=== PATIENT | male | born 1990 | race Caucasian/White ===

== ENCOUNTER 2016-11-13 11:25 | Emergency (ER) | payer OTHER ==
[2016-11-13 11:32] VITALS: BP 148/77
[2016-11-13] MEDS ORDERED: LIDOCAINE 1% INJ-PF (10 MG/ML) 30 ML SDV INJ ONE (11:36)
[2016-11-13] MEDS ORDERED: DIPH/PERTUSS(ACELL)/TETANUS VAC/PF 0.5 ML SYR (>=10YO) IM ONE (11:36)
--- NOTE | 2016-11-13 12:16 | ER Document Report ---
ED Wound - General Chief Complaint: Laceration Stated Complaint: CHIN LACERATION Time Seen by Provider: 11/13/16 11:35 Notes: patient is a 26 year old male who presents with a laceration on his chin form a tree branch <1 hour ago. bleeding controlled. denies h/i, h/a, LOC, n/v, AMS TRAVEL OUTSIDE OF THE [place] IN LAST 30 DAYS: No - Related Data Allergies/Adverse Reactions: prednisone Allergy (Verified 11/13/16 11:32) tachycardia, feels like will pass out Past Medical History - Social History Smoking Status: Never Smoker Chew tobacco use (# tins/day): No Frequency of alcohol use: None Drug Abuse: None Family History: Reviewed & Not Pertinent Patient has suicidal ideation: No Patient has homicidal ideation: No Renal/ Medical History: Denies: Hx Peritoneal Dialysis Surgical Hx: Negative Review of Systems - Review of Systems EENT: No symptoms reported Skin: See HPI Physical Exam - Vital signs Vitals: Temp Pulse Resp BP Pulse Ox 97.5 F 66 18 148/77 H 99 11/13/16 11:30 11/13/16 11:30 11/13/16 11:30 11/13/16 11:30 11/13/16 11:30 - General General appearance: Appears well, Alert In distress: None - Respiratory Respiratory status: No respiratory distress Chest status: Nontender Breath sounds: Normal Chest palpation: Normal - Cardiovascular Rhythm: Regular Heart sounds: Normal auscultation Murmur: No Pulses: Normal: Radial Normal capillary refill: Yes - Neurological Neuro grossly intact: Yes Cognition: Normal Orientation: AAOx4 [place] Coma Scale Eye Opening: Spontaneous [place] Coma Scale Verbal: Oriented [place] Coma Scale Motor: Obeys Commands [place] Coma Scale Total: 15 - Skin Skin Temperature: Warm - 2cm Skin Moisture: Dry Skin Color: Normal Skin Turgor: Elastic Skin irregularity: Laceration - past dermis, minimal subq fat involvment Location of irregularity: Face Irregularity with: Other - no longer bleeding Course - Re-evaluation Re-evalutation: 11/13/16 15:36 wound irrigated saline and Betadine the bedside. closed with 2 6.0 nylon suture. patient toelrated the procedure well without complications. to see [facility] in 3-5 days for suture removal - Vital Signs Vital signs: Temp Pulse Resp BP Pulse Ox 97.5 F 66 18 148/77 H 99 11/13/16 11:30 11/13/16 11:30 11/13/16 11:30 11/13/16 11:30 11/13/16 11:30 Procedures - Laceration/Wound Repair Face Wound length (cm): 2 Wound's Depth, Shape: Linear. No: Into muscle, Irregular, Flap Laceration pre-procedure: Sterile PPE donned, Sterile drapes applied Anesthetic type: 1% Lidocaine Volume Anesthetic (mLs): 2 Wound explored: Clean, No foreign body removed Wound Debrided: Minimal Wound Repaired With: Sutures Suture Size/Type: 6:0, Nylon Number of Sutures: 2 Layer Closure?: No Post-procedure NV exam normal: Yes Complications: No Discharge - Discharge Clinical Impression: Laceration Condition: Good Disposition: HOME, SELF-CARE Instructions: Antibiotic Ointment Protection ([facility]), Laceration Care ([facility]), Tetanus Immunization Given ([facility]), Soap Cleansing ([facility]) Additional Instructions: Please see a provider in 3-5 days to have your stitches removed Forms: Special Work Note, Return to Work Referrals: TONG OLIVAS MD [ACTIVE STAFF] - Follow up as needed
== END 2016-11-13 12:22 | disposition home or self-care (01) ==
LOC: ER 11:25
PROC: 0HQ1XZZ Repair Face Skin, External Approach (ICD-10-PCS; principal; 2016-11-13)
DX: S01.81XA Laceration without foreign body of other part of head, initial encounter (principal); W45.8XXA Other foreign body or object entering through skin, initial encounter
CPT/HCPCS: 90471; 90715; 99282

== ENCOUNTER 2016-11-19 07:18 | Emergency (ER) | payer OTHER ==
[2016-11-19 07:25] VITALS: BP 144/84
--- NOTE | 2016-11-19 08:12 | ER Document Report ---
HPI - HPI Patient complains to provider of: suture removal Onset: Other - Onset/Duration: Sudden Quality of pain: No pain Pain Level: 0 Context: Patient presents today with request for suture removal. Patient reports he had sutures placed on November 13 after tree limb hit him in the face. He denies fever vomiting diarrhea. Reports no pain to the site. Patient's sutures noted to, no erythema swelling noted no signs of infection. Associated Symptoms: None Exacerbated by: Denies Relieved by: Denies Similar symptoms previously: Yes Recently seen / treated by doctor: Yes - DERM Skin Color: Normal Past Medical History - General Information source: Patient - Social History Smoking Status: Unknown if Ever Smoked Cigarette use (# per day): No Frequency of alcohol use: None Drug Abuse: None Occupation: [employer] Family History: Reviewed & Not Pertinent Patient has suicidal ideation: No Patient has homicidal ideation: No - Medical History Medical History: Negative Renal/ Medical History: Denies: Hx Peritoneal Dialysis Surgical Hx: Negative Vertical Provider Document - CONSTITUTIONAL Agree With Documented VS: Yes Exam Limitations: No Limitations General Appearance: WD/WN, No Apparent Distress - INFECTION CONTROL TRAVEL OUTSIDE OF THE [place] IN LAST 30 DAYS: No - HEENT HEENT: Atraumatic, Normocephalic - NECK Neck: Supple - RESPIRATORY Respiratory: No Respiratory Distress O2 Sat by Pulse Oximetry: 100 - CARDIOVASCULAR Cardiovascular: Regular Rate - MUSCULOSKELETAL/EXTREMETIES Musculoskeletal/Extremeties: MAEW, FROM - NEURO Level of Consciousness: Awake, Alert, Appropriate Motor/Sensory: No Motor Deficit - DERM Integumentary: Warm, Dry Adult Front & Back Diagram: 1 - 2 sutures noted intact site benign. open his mouth wide Course - Re-evaluation Re-evalutation: 11/19/16 sutures removed , pt instructed on importance of monitoring the site for s/s infection, fu with pcp or return here for concerns - Vital Signs Vital signs: Temp Pulse Resp BP Pulse Ox 97.6 F 62 16 144/84 H 100 11/19/16 07:23 11/19/16 07:23 11/19/16 07:23 11/19/16 07:23 11/19/16 07:23 Discharge - Discharge Clinical Impression: Encounter for removal of sutures, Elevated blood pressure reading Condition: Stable Disposition: HOME, SELF-CARE Instructions: Suture Removal Additional Instructions: *You have been treated for a suture removal *Monitor the site for signs of infection such as pain, redness, swelling, warmth *Keep the area clean *Return to ED for signs of infection, worsening condition, concerns, changes, needs Forms: Elevated Blood Pressure Referrals: LAURENCE GUZMAN MD [Primary Care Provider] - Follow up in 1 week
== END 2016-11-19 08:18 | disposition home or self-care (01) ==
LOC: ER 07:18
DX: Z48.02 Encounter for removal of sutures (principal); R03.0 Elevated blood-pressure reading, without diagnosis of hypertension

== ENCOUNTER 2019-08-21 08:27 | Observation (INO) | payer OTHER ==
[2019-08-21 09:33] LABS: ABSOLUTE LYMPHOCYTES (AUTO) 1.6 10^3/uL (0.5-4.7); ABSOLUTE MONOCYTES (AUTO) 1.3 10^3/uL (0.1-1.4); ABSOLUTE NEUT (AUTO) 7.3 10^3/uL (1.7-8.2); BASOPHILS % (AUTO) 0.3 % (0-2); EOSINOPHILS % (AUTO) 0.3 % (0-6); HEMATOCRIT 46.1 % (37.9-51.0); HEMOGLOBIN 16.6 g/dL (13.5-17.0); LYMPHOCYTES % (AUTO) 15.4 % (13-45); MEAN CORPUSCULAR HEMOGLOBIN 30.4 pg (27.0-33.4); MEAN CORPUSCULAR VOLUME 85 fl (80-97); MONOCYTES % (AUTO) 12.3 % (3-13); PLATELET COUNT 218 10^3/uL (150-450); RED BLOOD COUNT 5.44 10^6/uL (4.35-5.55); RED CELL DISTRIBUTION WIDTH 13.7 % (11.5-14.0); SEGMENTED NEUTROPHILS % (AUTO) 71.7 % (42-78); TOTAL CELLS COUNTED % (AUTO) 100 %; WHITE BLOOD COUNT 10.2 10^3/uL (4.0-10.5)
[2019-08-21 09:54] LABS: APPEARANCE,URINE SLIGHTLY-CLOUDY; BILIRUBIN,URINE NEGATIVE (NEGATIVE); COLOR,URINE YELLOW; GLUCOSE, URINE NEGATIVE (NEGATIVE); KETONES,URINE 80 mg/dL (NEGATIVE); LEUKOCYTE ESTERASE,URINE NEGATIVE (NEGATIVE); NITRITE,URINE NEGATIVE (NEGATIVE); PROTEIN,URINE NEGATIVE (NEGATIVE); URINE SPECIFIC GRAVITY 1.025; UROBILINOGEN,URINE NEGATIVE mg/dL (<2.0)
[2019-08-21 09:57] LABS: ALBUMIN 4.3 g/dL (3.5-5.0); ALKALINE PHOSPHATASE 68 U/L (38-126); ANION GAP 13 (5-19); ASPARTATE AMINO TRANSFERASE 21 U/L (17-59); BILIRUBIN,TOTAL 1.1 mg/dL (0.2-1.3); BLOOD UREA NITROGEN 25 mg/dL (7-20); CALCIUM 9.4 mg/dL (8.4-10.2); CARBON DIOXIDE 24 mmol/L (22-30); CHLORIDE 98 mmol/L (98-107); GLUCOSE 92 mg/dL (75-110); POTASSIUM 3.9 mmol/L (3.6-5.0); TOTAL PROTEIN 7.4 g/dL (6.3-8.2)
[2019-08-21] MEDS ORDERED: NORMAL SALINE 1000 ML 1,000 ML IV ONE ×2 (10:19→10:50)
[2019-08-21] MEDS ORDERED: METRONIDAZOLE 500 MG/NS RTU 500 MG/100 ML RTUPB IV ONE (10:52)
[2019-08-21] MEDS ORDERED: ONDANSETRON HCL INJ/PF 4 MG/2 ML SDV IV ONE (10:53)
[2019-08-21] MEDS ORDERED: FENTANYL CITRATE INJ/PF 100 MCG/2 ML AMPUL IV ONE (10:54)
--- NOTE | 2019-08-21 10:59 | ER Document Report ---
ED General - General Chief Complaint: Nausea/Vomiting/Diarrhea Stated Complaint: VOMITING/DIAHERRA/FEVER/HEADACHE/BLOOD IN STOOL Time Seen by Provider: 08/21/19 09:52 Primary Care Provider: LAURENCE GUZMAN MD [Primary Care Provider] - Follow up as needed TRAVEL OUTSIDE OF THE [place] IN LAST 30 DAYS: No - HPI Notes: Chief complaint: Nausea/vomiting and diarrhea Previously healthy 29-year-old male reports 5-day history of what he perceived to be a viral illness. He says he started out with some nasal stuffiness. He subsequently developed nausea vomiting. He was on vacation in [facility] and felt that he was febrile intermittently but did not have a thermometer. He took Tylenol and the fever would break and he would feel better and then when the fever would rise again he would become nauseated and have recurrent episodes of vomiting. Thereafter he developed watery diarrhea and this is persisted for several days and today he is having cramping and passing some blood with his stools. Denies prior serious illnesses, hospitalizations or surgery. Patient's had a history of GERD which he is self medicates with [id number] Pepcid. Patient reports intolerance for prednisone which she took in the past for poison gabino. He said this made him extremely jittery and restless. No prior surgery. Non-smoker. Denies alcohol or drug abuse. - Related Data Allergies/Adverse Reactions: prednisone Allergy (Verified 08/21/19 08:49) tachycardia, feels like will pass out Past Medical History - General Information source: Patient, Relative - Social History Smoking Status: Never Smoker Frequency of alcohol use: None Drug Abuse: None Occupation: Works with a [employer] service Lives with: Family Family History: Reviewed & Not Pertinent Patient has suicidal ideation: No Patient has homicidal ideation: No Endocrine Medical History: Reports: Other - "Prediabetes" Renal/ Medical History: Denies: Hx Peritoneal Dialysis GI Medical History: Reports: Hx Gastroesophageal Reflux Disease Review of Systems - Review of Systems Notes: Constitutional: As per HPI. HENT: As per HPI t. Eyes: Negative for visual changes. Cardiovascular: Negative for chest pain. Respiratory: Negative for shortness of breath. Gastrointestinal: As per HPI. Genitourinary: Negative for dysuria. Musculoskeletal: Negative for back pain. Skin: Negative for rash. Neurological: Negative for headaches, weakness or numbness. 10 point ROS negative except as marked above and in HPI. Physical Exam - Vital signs Vitals: Temp Pulse Resp BP Pulse Ox 98.4 F 86 18 152/94 H 100 08/21/19 08:31 08/21/19 08:31 08/21/19 08:31 08/21/19 08:31 08/21/19 08:31 - Notes Notes: GENERAL: Male patient appearing approximately stated age who looks ill and acutely dehydrated. SKIN: Pale and clammy. No rashes. HEAD: Normocephalic atraumatic. EYES: Eyes appear mildly sunken. PERRLA. EOMI. Conjunctivae and sclerae clear. EARS: CANALS AND TMS CLEAR. NOSE: CLEAR. MOUTH: Tacky oral mucosa. Good dentition. No stridor or edema. No drooling. NECK: Supple. No masses or thyromegaly. No adenopathy. Carotids 2+ without bruits. No JVD. BACK: Symmetrical without tenderness. CHEST: Respirations unlabored. Breath sounds clear and symmetrical. HEART: Mildly tachycardic regular rhythm. No murmur gallop or rub. ABDOMEN: Mild diffuse tenderness. Soft without masses, organomegaly or rebound. Bowel sounds hyperactive. No bruits. GENITALIA: Deferred. EXTREMITIES: No edema. No calf tenderness. Cap refill less than 1.5 seconds. Dorsalis pedis and posterior tibial pulses 3+ and symmetrical. NEUROLOGICAL: GCS 15. Alert and oriented x3. Normal gait. Fluent speech. Cranial nerves II through XII intact. Sensorimotor and cerebellar normal. Normal tone. PSYCHIATRIC: Appropriate affect. Course - Re-evaluation Re-evalutation: 08/21/19 11:02 This man is significantly clinically dehydrated on physical exam. His BUN is mildly elevated. His CBC and chemistry profile are otherwise unremarkable. His urinalysis shows significant ketonuria and concentration consistent with dehydration. Clinically he now has dysentery. We will continue IV hydration I am going give him a small amount of fentanyl for his cramping as well as Zofran IV. I requested a CT scan abdomen/pelvis with contrast IV. We will request stool specimens for fecal leukocytes Gram stain, culture and C. difficile toxin assay. I am going to go ahead and empirically administer some Cipro and Flagyl IV. - Vital Signs Vital signs: Temp Pulse Resp BP Pulse Ox 99.6 F 110 H 18 142/72 H 98 08/21/19 13:57 08/21/19 13:57 08/21/19 13:57 08/21/19 13:57 08/21/19 13:57 - Laboratory Result Diagrams: 08/21/19 09:25 08/21/19 09:25 Laboratory results interpreted by me: 08/21/19 08/21/19 09:25 09:36 Sodium 135.1 L BUN 25 H Urine Ketones 80 H Urine Blood MODERATE H Discharge - Discharge Clinical Impression: Dehydration, Infectious gastroenteritis and colitis, unspecified Condition: Fair Disposition: ADMITTED INPATIENT Admitting Provider: [place] [facility] Admitted: Medical Floor Referrals: LAURENCE GUZMAN MD [Primary Care Provider] - Follow up as needed
[2019-08-21] MEDS ORDERED: CIPROFLOXACIN 400 MG/D5W RTU 400 MG/200 ML RTUPB IV SCH (11:00)
[2019-08-21 11:42] LABS: A TYPE INFLUENZA AG NEGATIVE (NEGATIVE); B INFLUENZA AG NEGATIVE (NEGATIVE)
--- NOTE | 2019-08-21 12:26 | RADIOLOGY REPORT (SQ) ---
EXAM DESCRIPTION: CT ABD/PELVIS WITH IV ONLY COMPLETED DATE/TIME: 08/21/2019 12:12 pm REASON FOR STUDY: abd. pain COMPARISON: None. TECHNIQUE: CT scan of the abdomen and pelvis performed using helical scanning technique with dynamic intravenous contrast injection. No oral contrast. Images reviewed with lung, soft tissue, and bone windows. Reconstructed coronal and sagittal MPR images reviewed. Delayed images were not acquired. Al l images stored on PACS. All CT scanners at this facility use dose modulation, iterative reconstruction, and/or weight based d osing when appropriate to reduce radiation dose to as low as reasonably achievable (ALARA). [facility]: Dose Right [facility]: CareDose [facility]: Dose Right [facility]: Teradose 4D [facility]: vzaar CONTRAST TYPE AND DOSE: contrast/concentration: Isovue 350.00 mg/ml; Total Contrast Delivered: 100.0 ml; Total Saline Delivered: 46.6 ml RENAL FUNCTION: None required. The patient is less than 50 years old. RADIATION DOSE: CT Rad equipment meets quality standard of care and radiation dose reduction techniq ues were employed. CTDIvol: NaN - NaN mGy. DLP: 0 mGy-cm.. LIMITATIONS: None. FINDINGS: LOWER CHEST: No significant findings. No nodules or infiltrates. LIVER: Normal size. No masses. No dilated ducts. SPLEEN: Normal size. No focal lesions. PANCREAS: No masses. No significant calcifications. No adjacent inflammation or peripancreatic fluid collections. Pancreatic duct not dilated. GALLBLADDER: No identified stones by CT criteria. No inflammatory changes to suggest cholecystitis. ADRENAL GLANDS: No significant masses or asymmetry. RIGHT KIDNEY AND URETER: No solid masses. No definite nephroureterolithiasis. Scattered pelvic den sities, likely phleboliths. No hydronephrosis or hydroureter. LEFT KIDNEY AND URETER: No solid masses. No definite nephroureterolithiasis. Scattered pelvic dens ities, likely phleboliths. No hydronephrosis or hydroureter. AORTA AND VESSELS: No aneurysm. No dissection. Renal arteries, SMA, celiac without stenosis. RETROPERITONEUM: No retroperitoneal adenopathy, hemorrhage or masses. BOWEL AND PERITONEAL CAVITY: No focal bowel wall thickening. No evidence of intestinal obstruction. Questionable mild sigmoid thickening versus decompressed state. No pericolonic inflammatory change. APPENDIX: Normal appendix (series 3, image [id number]) PELVIS: Decompressed urinary bladder. No free fluid. No adenopathy or mass. Scattered phleboliths. ABDOMINAL WALL: No masses. No hernias. BONES: No acute bony abnormality. No suspicious osseous lesions. OTHER: No other significant finding. IMPRESSION: 1. Mild sigmoid wall thickening possibly secondary to mild colitis versus decompressed state. No pericolonic inflammatory change. Recommend correlation with patient symptoms. 2. No other evidence of acute intra-abdominal/pelvic process. Normal appendix. TECHNICAL DOCUMENTATION: JOB ID: [id number] Quality ID # [id number]: Final reports with documentation of one or more dose reduction techniques (e.g., Au tomated exposure control, adjustment of the mA and/or kV according to patient size, use of iterative reconstruction technique) 2010 [employer]- All Rights Reserved Reading location - IP/workstation name: [email or web address]
[2019-08-21] MEDS ORDERED: METOCLOPRAMIDE HCL INJ/PF 10 MG/2 ML SDV IV ONE (13:33)
[2019-08-21] MEDS ORDERED: MORPHINE SULFATE 10 MG/ML INJ IV ONE (13:34)
[2019-08-21 14:56] LABS: C DIFFICILE GDH NEGATIVE (NEGATIVE)
[2019-08-21] MEDS ORDERED: ACETAMINOPHEN 325 MG TABLET PO PRN ×2 (15:12→19:16)
[2019-08-21] MEDS ORDERED: PROMETHAZINE HCL INJ 25 MG/1 ML VIAL IV PRN (15:20)
[2019-08-21] MEDS ORDERED: ONDANSETRON HCL INJ/PF 4 MG/2 ML SDV IV PRN (15:20)
[2019-08-21] MEDS: NORMAL SALINE 1000 ML 1,000 ML IV PRN (17:23)
[2019-08-21] MEDS ORDERED: MORPHINE SULFATE 10 MG/ML INJ IV PRN (19:13)
[2019-08-21] MEDS ORDERED: KETOROLAC TROMETHAMINE INJ/PF 30 MG/1 ML SDV IV PRN (19:13)
--- NOTE | 2019-08-21 19:16 | PDOC H&P ---
History of Present Illness Admission Date/PCP: 08/21/19 15:31 LAURENCE GUZMAN MD Patient complains of: diarrhea History of Present Illness: OSMAR ROWLAND is a 29 year old male with a past medical history significant only for GERD who presented to the emergency department today with a complaint of 4 days of abdominal discomfort, intermittent nausea and vomiting, and frequent diarrhea now with scant streaks of blood. He reports adequate p.o. intake but has been intolerant of solids. He reports subjective fever and chills but has not taken his temperature. No suspect meals or sick contacts. Evaluation in the emergency department revealed normal CBC, chemistry remarkable for sodium 135 and BUN 25, urinalysis with ketones and moderate blood, negative C. difficile, and negative influenza. CT abdomen pelvis revealed mild sigmoid wall thickening. He was noted to be dehydration on exam and following 2 L normal saline bolus, he did remain orthostatic with an increase of his heart rate from 62-98 upon standing. Patient did report slight dizziness. Therefore, he is referred to the hospitalist service for admission and management of dehydration secondary to colitis. Past Medical History Cardiac Medical History: Reports: None Pulmonary Medical History: Reports: None EENT Medical History: Reports: None Neurological Medical History: Reports: None Renal/ Medical History: Reports: None GI Medical History: Reports: Gastroesophageal Reflux Disease Musculoskeltal Medical History: Reports: None Skin Medical History: Reports: None Psychiatric Medical History: Reports: None Traumatic Medical History: Reports: None Hematology: Reports: None Infectious Medical History: Reports: None Past Surgical History Past Surgical History: Reports: None Social History Information Source: Patient Lives with: Family Smoking Status: Never Smoker Electronic Cigarette use?: No Frequency of Alcohol Use: None Hx Recreational Drug Use: No Hx Prescription Drug Abuse: No - Advance Directive Resuscitation Status: Full Code Family History Family History: Reviewed & Not Pertinent Parental Family History Reviewed: Yes Children Family History Reviewed: Yes Sibling(s) Family History Reviewed.: Yes Medication/Allergy Home Medications: Omeprazole 20 mg PO DAILY 08/21/19 Allergies/Adverse Reactions: prednisone Allergy (Verified 08/21/19 08:49) tachycardia, feels like will pass out Review of Systems Constitutional: PRESENT: anorexia, chills, fever(s). ABSENT: headache(s), weight gain, weight loss Eyes: ABSENT: visual disturbances Ears: ABSENT: hearing changes Cardiovascular: ABSENT: chest pain, dyspnea on exertion, edema, orthropnea, palpitations Respiratory: ABSENT: cough, hemoptysis Gastrointestinal: PRESENT: abdominal pain, diarrhea, nausea, vomiting. ABSENT: constipation, hematemesis, hematochezia Genitourinary: ABSENT: dysuria, hematuria Musculoskeletal: ABSENT: joint swelling Integumentary: ABSENT: rash, wounds Neurological: ABSENT: abnormal gait, abnormal speech, confusion, dizziness, focal weakness, syncope Psychiatric: ABSENT: anxiety, depression, homidical ideation, suicidal ideation Endocrine: ABSENT: cold intolerance, heat intolerance, polydipsia, polyuria Hematologic/Lymphatic: ABSENT: easy bleeding, easy bruising Physical Exam Vital Signs: Temp Pulse Resp BP Pulse Ox 98.6 F 69 16 164/64 H 100 08/21/19 16:46 08/21/19 16:46 08/21/19 16:46 08/21/19 16:46 08/21/19 16:46 Intake & Output 08/20/19 08/21/19 08/22/19 06:59 06:59 06:59 Intake Total 2300 Balance 2300 Weight 92.7 kg General appearance: PRESENT: no acute distress, cooperative, well-developed, well-nourished Head exam: PRESENT: atraumatic, normocephalic Eye exam: PRESENT: conjunctiva pink, EOMI, PERRLA. ABSENT: scleral icterus Ear exam: PRESENT: normal external ear exam Mouth exam: PRESENT: dry mucosa, tongue midline Respiratory exam: PRESENT: clear to auscultation deepa, symmetrical, unlabored. ABSENT: rales, rhonchi, wheezes Cardiovascular exam: PRESENT: RRR, +S1, +S2, tachycardia. ABSENT: diastolic murmur, rubs, systolic murmur Vascular exam: PRESENT: normal capillary refill GI/Abdominal exam: PRESENT: normal bowel sounds, soft, tenderness - Generalized, vague. ABSENT: distended, guarding, mass, organolmegaly, rebound Rectal exam: PRESENT: deferred Extremities exam: PRESENT: full ROM. ABSENT: calf tenderness, clubbing, pedal edema Musculoskeletal exam: PRESENT: ambulatory Neurological exam: PRESENT: alert, awake, oriented to person, oriented to place, oriented to time, oriented to situation, CN II-XII grossly intact. ABSENT: motor sensory deficit Psychiatric exam: PRESENT: appropriate affect, normal mood. ABSENT: homicidal ideation, suicidal ideation Skin exam: PRESENT: dry, intact, warm. ABSENT: cyanosis, rash Results Laboratory Results: 08/21/19 09:25 08/21/19 09:25 08/21/19 08/21/19 08/21/19 09:25 09:25 09:36 WBC 10.2 RBC 5.44 Hgb 16.6 Hct 46.1 MCV 85 MCH 30.4 MCHC 36.0 RDW 13.7 Plt Count 218 Seg Neutrophils % 71.7 Sodium 135.1 L Potassium 3.9 Chloride 98 Carbon Dioxide 24 Anion Gap 13 BUN 25 H Creatinine 0.98 Est GFR ( Amer) > 60 Glucose 92 Calcium 9.4 Total Bilirubin 1.1 AST 21 Alkaline Phosphatase 68 Total Protein 7.4 Albumin 4.3 Lipase 102.7 Urine Color YELLOW Urine Appearance SLIGHTLY-CLOUDY Urine pH 5.0 Ur Specific [place] 1.025 Urine Protein NEGATIVE Urine Glucose (UA) NEGATIVE Urine Ketones 80 H Urine Blood MODERATE H Urine Nitrite NEGATIVE Ur Leukocyte Esterase NEGATIVE Urine WBC (Auto) 3 Urine RBC (Auto) 4 Impressions: Abdomen/Pelvis CT 08/21/19 10:51 IMPRESSION: 1. Mild sigmoid wall thickening possibly secondary to mild colitis versus decompressed state. No pericolonic inflammatory change. Recommend corre lation with patient symptoms. 2. No other evidence of acute intra-abdominal/pelvic process. Normal appendix. Assessment and Plan - Diagnosis (1) Dehydration Is this a current diagnosis for this admission?: Yes Plan: Secondary to diarrhea/colitis with poor p.o. intake. Patient received 2 L normal saline bolus by ED provider patient reported improved symptoms following rehydration, however, he remained significantly orthostatic. He is admitted to the medical floor. He is placed on generous IV fluids. Clear liquid diet. Follow-up chemistry. (2) Infectious gastroenteritis and colitis, unspecified Is this a current diagnosis for this admission?: Yes Plan: C. difficile is negative. Stool culture pending. Blood culture pending. Empirically placed on IV Cipro and Flagyl. Antiemetics and analgesics as needed. IV fluids. Clear liquid diet. (3) Colitis Is this a current diagnosis for this admission?: Yes Plan: Cultures and antibiotics as above. Supportive/symptomatic care. - Time Time Spent with patient: 35 or more minutes Medications reviewed and adjusted accordingly: Yes Anticipated discharge: Home Within: within 24 hours
[2019-08-21] MEDS: CIPROFLOXACIN 400 MG/D5W RTU 400 MG/200 ML RTUPB IV SCH (22:04)
[2019-08-21] MEDS: FAMOTIDINE INJ/PF 20 MG/2 ML SDV IV SCH (22:04)
[2019-08-21] MEDS: METRONIDAZOLE 500 MG/NS RTU 500 MG/100 ML RTUPB IV SCH (23:33)
[2019-08-22] MEDS: NORMAL SALINE 1000 ML 1,000 ML IV PRN (04:37)
[2019-08-22] MEDS: METRONIDAZOLE 500 MG/NS RTU 500 MG/100 ML RTUPB IV SCH ×2 (05:40→11:39)
[2019-08-22 05:52] LABS: HEMATOCRIT 38.7 % (37.9-51.0); MEAN CORPUSCULAR HEMOGLOBIN 30.5 pg (27.0-33.4); MEAN CORPUSCULAR HGB CONC 35.8 g/dL (32.0-36.0); MEAN CORPUSCULAR VOLUME 85 fl (80-97); PLATELET COUNT 186 10^3/uL (150-450); RED BLOOD COUNT 4.53 10^6/uL (4.35-5.55); RED CELL DISTRIBUTION WIDTH 13.4 % (11.5-14.0); WHITE BLOOD COUNT 6.4 10^3/uL (4.0-10.5)
[2019-08-22 05:53] LABS: HEMOGLOBIN 13.8 g/dL (13.5-17.0)
[2019-08-22 06:22] LABS: ANION GAP 8 (5-19); BLOOD UREA NITROGEN 14 mg/dL (7-20); CALCIUM 8.6 mg/dL (8.4-10.2); CARBON DIOXIDE 25 mmol/L (22-30); CHLORIDE 103 mmol/L (98-107); GLUCOSE 83 mg/dL (75-110); POTASSIUM 4.3 mmol/L (3.6-5.0)
[2019-08-22] MEDS: FAMOTIDINE INJ/PF 20 MG/2 ML SDV IV SCH (09:54)
[2019-08-22] MEDS: CIPROFLOXACIN 400 MG/D5W RTU 400 MG/200 ML RTUPB IV SCH (09:55)
[2019-08-22 12:17] VITALS: BP 143/78
--- NOTE | 2019-08-22 15:41 | PDOC DISCHARGE SUMMARY ---
Impression - Admit/DC Date/PCP Admission Date/Primary Care Provider: 08/21/19 15:31 LAURENCE GUZMAN MD Discharge Date: 08/22/19 - Discharge Diagnosis (1) Dehydration Is this a current diagnosis for this admission?: Yes (2) Infectious gastroenteritis and colitis, unspecified Is this a current diagnosis for this admission?: Yes (3) Colitis Is this a current diagnosis for this admission?: Yes - Additional Information Resuscitation Status: Full Code Discharge Diet: As Tolerated, Regular Discharge Activity: Activity As Tolerated, Balance Activity w/Rest, Slowly Increase Activity Referrals: LAURENCE GUZMAN MD [Primary Care Provider] - Prescriptions: Ciprofloxacin HCl [Cipro 500 mg Tablet] 500 mg PO BID #20 tablet Metronidazole [Flagyl 500 mg Tablet] 500 mg PO TID #30 tablet Hydrocodone/Acetaminophen [[place] 5-325 Tablet] 1 each PO Q6HP PRN #12 tablet PRN Reason: For Pain Promethazine HCl [Phenergan 25 mg Supp.rect] 1 supp DE Q6H #6 supp.rect Ondansetron [Zofran Odt 4 mg Tablet] 1 - 2 tab PO Q4HP PRN #20 tab.rapdis PRN Reason: Home Medications: Omeprazole 20 mg PO DAILY 08/21/19 Acetaminophen [Tylenol 325 mg Tablet] 650 mg PO Q4HP PRN tablet 08/22/19 Ciprofloxacin HCl [Cipro 500 mg Tablet] 500 mg PO BID #20 tablet 08/22/19 Hydrocodone/Acetaminophen [[place] 5-325 Tablet] 1 each PO Q6HP PRN #12 tablet 08/22/19 Metronidazole [Flagyl 500 mg Tablet] 500 mg PO TID #30 tablet 08/22/19 Ondansetron [Zofran Odt 4 mg Tablet] 1 - 2 tab PO Q4HP PRN #20 tab.rapdis 08/22/19 Promethazine HCl [Phenergan 25 mg Supp.rect] 1 supp DE Q6H #6 supp.rect 08/22/19 History of Present Illiness History of Present Illness: OSMAR ROWLAND is a 29 year old male with a past medical history significant only for GERD who presented to the emergency department today with a complaint of 4 days of abdominal discomfort, intermittent nausea and vomiting, and frequent diarrhea now with scant streaks of blood. He reports adequate p.o. intake but has been intolerant of solids. He reports subjective fever and chills but has not taken his temperature. No suspect meals or sick contacts. Evaluation in the emergency department revealed normal CBC, chemistry remarkable for sodium 135 and BUN 25, urinalysis with ketones and moderate blood, negative C. difficile, and negative influenza. CT abdomen pelvis revealed mild sigmoid wall thickening. He was noted to be dehydration on exam and following 2 L normal saline bolus, he did remain orthostatic with an increase of his heart rate from 62-98 upon standing. Patient did report slight dizziness. Therefore, he is referred to the hospitalist service for admission and management of dehydration secondary to colitis. Hospital Course Hospital Course: The patient was admitted to the medical floor. He is provided generous IV fluids. He was empirically placed on IV Cipro and Flagyl. He was started on a clear liquid diet with antiemetics and analgesics as needed. The patient tolerated his diet well and required only 1 dose of IV Toradol overnight; did not require PRN antiemetics. This morning, his orthostatic hypotension has resolved. He was advanced to a soft, low residue, diet, which he also tolerated well. He was observed for 2-1/2 hours following lunch without increased abdominal discomfort, nausea, or vomiting. Therefore, he is discharged to home with instructions to continue his diet as tolerated and to remain hydrated with oral fluids. His is instructed to complete the course of antibiotics. He is instructed to follow-up with his primary care provider within 1 week and to return to the emergency department as needed for concerning symptoms. Patient is discharged home in stable condition. Physical Exam Vital Signs: Temp Pulse Resp BP Pulse Ox 97.7 F 61 17 143/78 H 100 08/22/19 13:55 08/22/19 13:55 08/22/19 13:55 08/22/19 13:55 08/22/19 13:55 Intake & Output 08/21/19 08/22/19 08/23/19 06:59 06:59 06:59 Intake Total 4001 400 Balance 4001 400 Weight 93.2 kg General appearance: PRESENT: no acute distress, well-developed, well-nourished Head exam: PRESENT: atraumatic, normocephalic Eye exam: PRESENT: conjunctiva pink, EOMI, PERRLA. ABSENT: scleral icterus Ear exam: PRESENT: normal external ear exam Mouth exam: PRESENT: moist, tongue midline Neck exam: ABSENT: carotid bruit, JVD, lymphadenopathy, thyromegaly Respiratory exam: PRESENT: clear to auscultation deepa. ABSENT: rales, rhonchi, wheezes Cardiovascular exam: PRESENT: RRR. ABSENT: diastolic murmur, rubs, systolic murmur Pulses: PRESENT: normal dorsalis pedis pul Vascular exam: PRESENT: normal capillary refill GI/Abdominal exam: PRESENT: normal bowel sounds, soft. ABSENT: distended, guarding, mass, organolmegaly, rebound, tenderness Rectal exam: PRESENT: deferred Extremities exam: PRESENT: full ROM. ABSENT: calf tenderness, clubbing, pedal edema Neurological exam: PRESENT: alert, awake, oriented to person, oriented to place, oriented to time, oriented to situation, CN II-XII grossly intact. ABSENT: motor sensory deficit Psychiatric exam: PRESENT: appropriate affect, normal mood. ABSENT: homicidal ideation, suicidal ideation Skin exam: PRESENT: dry, intact, warm. ABSENT: cyanosis, rash Results Laboratory Results: WBC 6.4 10^3/uL (4.0-10.5) 08/22/19 04:55 RBC 4.53 10^6/uL (4.35-5.55) 08/22/19 04:55 Hgb 13.8 g/dL (13.5-17.0) D 08/22/19 04:55 Hct 38.7 % (37.9-51.0) 08/22/19 04:55 MCV 85 fl (80-97) 08/22/19 04:55 MCH 30.5 pg (27.0-33.4) 08/22/19 04:55 MCHC 35.8 g/dL (32.0-36.0) 08/22/19 04:55 RDW 13.4 % (11.5-14.0) 08/22/19 04:55 Plt Count 186 10^3/uL (150-450) 08/22/19 04:55 Lymph % (Auto) 15.4 % (13-45) 08/21/19 09:25 [place] % (Auto) 12.3 % (3-13) 08/21/19 09:25 Eos % (Auto) 0.3 % (0-6) 08/21/19 09:25 Baso % (Auto) 0.3 % (0-2) 08/21/19 09:25 Absolute Neuts (auto) 7.3 10^3/uL (1.7-8.2) 08/21/19 09:25 Absolute Lymphs (auto) 1.6 10^3/uL (0.5-4.7) 08/21/19 09:25 Absolute Monos (auto) 1.3 10^3/uL (0.1-1.4) 08/21/19 09:25 Absolute Eos (auto) 0.0 10^3/uL (0.0-0.6) 08/21/19 09:25 Absolute Basos (auto) 0.0 10^3/uL (0.0-0.2) 08/21/19 09:25 Seg Neutrophils % 71.7 % (42-78) 08/21/19 09:25 Sodium 135.6 mmol/L (137-145) L 08/22/19 04:55 Potassium 4.3 mmol/L (3.6-5.0) 08/22/19 04:55 Chloride 103 mmol/L (98-107) 08/22/19 04:55 Carbon Dioxide 25 mmol/L (22-30) 08/22/19 04:55 Anion Gap 8 (5-19) 08/22/19 04:55 BUN 14 mg/dL (7-20) 08/22/19 04:55 Creatinine 0.90 mg/dL (0.52-1.25) 08/22/19 04:55 Est GFR ( Amer) > 60 (>60) 08/22/19 04:55 Est GFR (MDRD) Non-Af > 60 (>60) 08/22/19 04:55 Glucose 83 mg/dL (75-110) 08/22/19 04:55 Calcium 8.6 mg/dL (8.4-10.2) 08/22/19 04:55 Total Bilirubin 1.1 mg/dL (0.2-1.3) 08/21/19 09:25 Direct Bilirubin 0.0 mg/dL (0.0-0.4) 08/21/19 09:25 Neonat Total Bilirubin Not Reportable 08/21/19 09:25 Neonat Direct Bilirubin Not Reportable 08/21/19 09:25 Neonat Indirect Bili Not Reportable 08/21/19 09:25 AST 21 U/L (17-59) 08/21/19 09:25 ALT 28 U/L (<50) 08/21/19 09:25 Alkaline Phosphatase 68 U/L (38-126) 08/21/19 09:25 Total Protein 7.4 g/dL (6.3-8.2) 08/21/19 09:25 Albumin 4.3 g/dL (3.5-5.0) 08/21/19 09:25 Lipase 102.7 U/L (23-300) 08/21/19 09:25 Urine Color YELLOW 08/21/19 09:36 Urine Appearance SLIGHTLY-CLOUDY 08/21/19 09:36 Urine pH 5.0 (5.0-9.0) 08/21/19 09:36 Ur Specific [place] 1.025 08/21/19 09:36 Urine Protein NEGATIVE mg/dL (NEGATIVE) 08/21/19 09:36 Urine Glucose (UA) NEGATIVE mg/dL (NEGATIVE) 08/21/19 09:36 Urine Ketones 80 mg/dL (NEGATIVE) H 08/21/19 09:36 Urine Blood MODERATE (NEGATIVE) H 08/21/19 09:36 Urine Nitrite NEGATIVE (NEGATIVE) 08/21/19 09:36 Urine Bilirubin NEGATIVE (NEGATIVE) 08/21/19 09:36 Urine Urobilinogen NEGATIVE mg/dL (<2.0) 08/21/19 09:36 Ur Leukocyte Esterase NEGATIVE (NEGATIVE) 08/21/19 09:36 Urine WBC (Auto) 3 /HPF 08/21/19 09:36 Urine RBC (Auto) 4 /HPF 08/21/19 09:36 Urine Mucus (Auto) MANY /LPF 08/21/19 09:36 Urine Ascorbic Acid NEGATIVE (NEGATIVE) 08/21/19 09:36 Stl C. Difficile GDH Ag NEGATIVE (NEGATIVE) 08/21/19 12:30 Stl C.difficile Tox A&B NEGATIVE (NEGATIVE) 08/21/19 12:30 Influenza A (Rapid) NEGATIVE (NEGATIVE) 08/21/19 11:15 Influenza B (Rapid) NEGATIVE (NEGATIVE) 08/21/19 11:15 Impressions: Abdomen/Pelvis CT 08/21/19 10:51 IMPRESSION: 1. Mild sigmoid wall thickening possibly secondary to mild colitis versus decompressed state. No pericolonic inflammatory change. Recommend correlation with patient symptoms. 2. No other evidence of acute intra-abdominal/pelvic process. Normal appendix. Plan Plan of Treatment: Patient is discharged home in stable condition. He is instructed to drink plenty of water, advance diet slowly as tolerated. Complete course of antibiotic therapy. Follow-up with primary care provider within 1 week. Return to the emergency department as needed for concerning symptoms. Time Spent: Less than 30 Minutes Stroke Is this a Stroke Patient?: No Acute Heart Failure - Is this a Heart Failure Patient?: No
== END 2019-08-22 14:24 | disposition home or self-care (01) ==
LOC: ER 08:27 → INTOOBSV 15:31 → EH 15:31 → 4N 16:40
PROVIDERS: ADMIT Internal Medicine; ATTEND Registered Nurse
DX: A09 Infectious gastroenteritis and colitis, unspecified (principal); E86.0 Dehydration; K21.9 Gastro-esophageal reflux disease without esophagitis; I95.1 Orthostatic hypotension; R31.9 Hematuria, unspecified; R82.4 Acetonuria; R51 Headache; Z79.899 Other long term (current) drug therapy; Z88.8 Allergy status to other drugs, medicaments and biological substances
CPT/HCPCS: 99285; 96361; 96375; 96365; 96367; 36415 ×2; 87040; 87045; 87205; 83690; 85025; 85027; 87077; 80048; 80053; 81001; 87804; 87324; 87449; 74177; G0378 ×3; J3010; J1885; J2765; J3490 ×2; J2270; J2405; J7030 ×2; J0744 ×2; S0028 ×2